=== PATIENT | female | born 1995 | race African-American/Black ===

== ENCOUNTER 2019-07-15 05:26 | Emergency (ER) | payer BC ==
[~2019-07-15] VITALS: Wt 77.3 kg
[~2019-07-15 05:26] MED LIST: ALBUTEROL0.09 MG/A1 IH; AUGMENTIN 500 M1 TAB PO; CEPHALEXIN500 M1 PO; INHALER
[2019-07-15 05:33] VITALS: BP 94/82; PULSE 89; TEMP 98.7
== END 2019-07-15 06:00 | disposition left against medical advice (07) ==
LOC: COL.ER 05:26
DX: J45.909 Unspecified asthma, uncomplicated (principal)

== ENCOUNTER → 2020-12-21 | Outpatient (CLI) | payer BC ==
[~2020-12-21] MED LIST changes: +ASPIRIN 81M81 MG/TA2 PO; +LEVOXYL0.05 MG PO; +PRENATAL TABLET PO; +ZYRTEC5 MG PO
== END ==
LOC: COL.RAD 08:31
DX: Z31.41 Encounter for fertility testing (principal)
CPT/HCPCS: Q9967

== ENCOUNTER → 2021-08-02 | Outpatient (CLI) | payer BC ==
[~2021-08-02] VITALS: Ht 162.6 cm; Wt 102.1 kg
--- NOTE | 2021-08-10 16:16 | NUR ---
THIS VISIT OCCURRED ON 08/02/21 @1800, DOCUMENTATION COPIED FROM INCORRECT ACCOUNT-UNABLE TO CHANGE DATE OF SERVICE ON INTERVENTION. NURSE CARING FOR PT TATIANA ISAACS.
== END ==
LOC: LDRO 08:00
DX: O9A.213 Injury, poisoning and certain other consequences of external causes complicating pregnancy, third trimester (principal); Z3A.28 28 weeks gestation of pregnancy

== ENCOUNTER → 2021-08-02 | Emergency (ER) | payer BC ==
[~2021-08-02] VITALS: Ht 162.6 cm; Wt 102.1 kg
== END ==
LOC: COL.ER 17:20
DX: O9A.22 Injury, poisoning and certain other consequences of external causes complicating childbirth (principal); Z3A.28 28 weeks gestation of pregnancy; V89.2XXA Person injured in unspecified motor-vehicle accident, traffic, initial encounter

== ENCOUNTER 2021-09-15 12:04 | Outpatient (CLI) | payer MEDICAID ==
[~2021-09-15] VITALS: Ht 162.6 cm; Wt 109.3 kg
--- NOTE | 2021-09-15 12:10 | NUR ---
Patient here with significant other and ambulates to [facility]6. Patient here from office for NST due to BPP 03/08. Patient is 34.3 weeks with twins. Plan of care discussed. 1311: Patient off monitors and discharge instructions given. 1315: Patient ambulates off unit at this time.
== END 2021-09-15 13:15 | disposition home or self-care (01) ==
LOC: LDRO 12:04
DX: O36.8330 Maternal care for abnormalities of the fetal heart rate or rhythm, third trimester, not applicable or unspecified (principal); Z3A.34 34 weeks gestation of pregnancy

== ENCOUNTER 2021-09-22 15:27 | Outpatient (CLI) | payer MEDICAID ==
[~2021-09-22] VITALS: Ht 162.6 cm; Wt 110.7 kg
--- NOTE | 2021-09-22 16:18 | NUR ---
1540 BABY A MID LOW ABDOMEN FHT 120, ACCELERTIONS NOTED AND BABY VERY ACTIVE. BABY B MID UPPER ABDOMEN. FHT 150 BABY VERY ACTIVE. 1610 BOTH BABIES REACTIVE TIMES 2. BABIES VERY ACTIVE AND ACCELERTIONS NOTED. NO CONTRACTIONS NOTED. BETAMETHASONE 12MG IM GIVEN IN LEFT BUTTOCKS. TOLERATES WELL. DENIES NEEDS. ALL DISCHARGE INSTRUCTIONS GIVEN AT THIS TIME, WITH VERBAL UNDERSTANDING.
== END 2021-09-22 16:21 | disposition home or self-care (01) ==
LOC: LDRO 15:27
DX: O30.003 Twin pregnancy, unspecified number of placenta and unspecified number of amniotic sacs, third trimester (principal); Z3A.35 35 weeks gestation of pregnancy
CPT/HCPCS: J0702